=== PATIENT | male | born 1985 | race Caucasian/White ===

== ENCOUNTER 2020-04-03 11:20 | Outpatient (CLI) | payer BC, SELFPAY ==
[2020-04-03 12:21] LABS: SARS-CoV-2 Ag Positive (Negative)
== END 2020-04-03 11:21 | disposition home or self-care (01) ==
LOC: CHSLAB 11:29
PROVIDERS: PCP Internal Medicine; Visit Provider Internal Medicine
DX: U07.1 COVID-19 (principal)
CPT/HCPCS: 87426; C9803

== ENCOUNTER 2020-07-28 18:29 | Emergency (ER) | payer BC, SELFPAY ==
[2020-07-28 19:00] VITALS: BP 146/91; PULSE 84; RESP 18; TEMP 36.2; O2SAT 97
--- NOTE | 2020-07-28 19:10 | PC.NURSE ---
report to irwin delatorre
[2020-07-28] MEDS: DEXAMETHASONE SOD PHOS INJ 4 MG/ML VIAL 10 MG IM (19:50)
[2020-07-28] MEDS: PROCHLORPERAZINE EDISYLATE 10 MG/2 ML VIAL IM (19:55)
[2020-07-28] MEDS: KETOROLAC (*BKC) 60 MG/2 ML VIAL IM (19:58)
[2020-07-28] MEDS: BACLOFEN 10 MG TABLET 20 MG PO (20:01)
[2020-07-28] MEDS: DIVALPROEX SODIUM ER 250 MG TAB.24H 1000 MG PO (20:04)
--- NOTE | 2020-07-28 20:57 | ED.HA ---
HPI - Headache General Chief Complaint: Headache Stated Complaint: migraine Time Seen by Provider: 07/28/20 19:30 Source: patient and family Mode of arrival: ambulatory Limitations: no limitations History of Present Illness HPI Narrative: Patient comes in with migraine that has been present for 8 hours. This is associated with nausea, photophobia, phonophobia, and irritability, inability to rest. Light, noise, glare, all made the headache worse. Headache is located behind right eye. Imitrex taken at home has not helped decrease the headache. Rest helped decrease headache. He rate headace as quite severe, pounding, throbbing. There was no known precipitating cause, or context that precipitated this. Related Data Home Medications Medication Instructions Recorded Confirmed topiramate 25 mg PO DAILY 03/12/19 07/28/20 Allergies Allergy/AdvReac Type Severity Reaction Status Date / Time No Known Allergies Allergy Verified 03/12/19 20:42 Review of Systems Constitutional: Constitutional: Reports no additional constitutional complaints Eyes: Eyes: Reports photophobia ENT: Reports system reviewed and no additional complaints, except as documented Cardiovascular: Cardiovascular: Reports no additional cardiovascular complaints Respiratory: Respiratory: Reports no additional respiratory complaints Gastrointestinal: Gastrointestinal: Reports nausea Genitourinary: Genitourinary: Reports no additional male genitourinary complaints Musculoskeletal: Musculoskeletal: Reports no additional musculoskeletal complaints Integumentary/Breasts: Skin/Breast: Reports system reviewed and no additional complaints, except as docu Neurologic: Reports system reviewed and no additional complaints, except as documented Psychiatric: Psychiatric: Reports no additional psychiatric complaints Endocrine: Endocrine: Reports no additional endocrine complaints Hematologic/Lymphatic: Hematologic/Lymphatic: Reports no additional hematologic/lymphatic complaints Allergic/Immunologic: Allergic/Immunologic: Reports no additional allergic/immunologic complaints [facility] Past Medical History Medical History (Updated 07/29/20 @ 03:34 by Julio Bolaños MD) GERD (gastroesophageal reflux disease) Migraine Migraine headache Surgical History Surgical History (Updated 07/29/20 @ 03:34 by Julio Bolaños MD) No significant past surgical history Family History Family History (Updated 07/29/20 @ 03:35 by Julio Bolaños MD) Mother No significant family history Social History Social History (Updated 03/12/19 @ 21:05 by Dante Porras, ) Social History: non-smoker. Lives with life, , and several dogs. No recent travel or ingestion of uncooked foods. Smoking packs per day: 0 Smoking cigarettes per day: 0.0 Exam Const: General: healthy appearing, no acute distress and alert Nutritional Appearance: well nourished Orientation/consciousness: patient oriented x3 HENMT: Head: normal to inspection Ears: external ears normal and TM's normal bilaterally Face and sinus: normal facial exam Mouth: Yes Normal oral and palatal mucosa present Throat: posterior oropharynx normal Eyes: Conjunctivae: conjunctivae normal Neck: Neck: normal visual inspection and no lymphadenopathy Chest: Chest palpation & inspection: normal inspection of the chest Resp: Effort & Inspection: normal respiratory effort Auscultation: clear to auscultation bilaterally Cardio: Rate: regular rate Rhythm: regular rhythm GI: GI Palp: Yes Soft to palpation (nontender) Auscultation: normal bowel sounds Skin: General skin exam: normal color Neuro: General: patient oriented x3, moves all extremities, no meningeal signs, no focal motor deficits and CN's II-XI intact bilaterally Speech: normal speech Extrem: General: normal to inspection Psych: Appearance: grossly normal Mental Status: mental status grossly normal Thought content: Yes Nor
[2020-07-28 21:02] VITALS: BP 140/78; PULSE 84; RESP 20; TEMP 36.6; O2SAT 97
== END 2020-07-28 21:05 | disposition home or self-care (01) ==
PROVIDERS: Emergency Provider Emergency Medicine; PCP Internal Medicine
DX: G43.909 Migraine, unspecified, not intractable, without status migrainosus (principal)
CPT/HCPCS: 96372; 99283; 99284; A9270; J0780; J1100; J1885

== ENCOUNTER 2020-07-29 08:02 | Outpatient (CLI) | payer BC, SELFPAY ==
[2020-07-29 08:21] LABS: Basophils Absolute Auto 0.02 K/mm3 (0.00-0.10); Basophils Percent Auto 0.2 % (0.0-1.0); Hematocrit 44.1 % (40.0-54.0); Hemoglobin 14.5 g/dL (14.0-18.0); Immature Granulocyte Absolute 0.07 K/mm3 (0.00-0.00); Immature Granulocyte Percent A 0.5 % (0.0-0.0); Lymphocytes Percent Auto 4.5 % (18.0-42.0); Mean Corpuscular HGB Conc 32.9 g/dL (32.0-36.0); Mean Corpuscular Hemoglobin 27.6 pg (27.0-31.0); Mean Platelet Volume 8.8 fl (8.7-11.0); Monocytes Absolute Auto 0.32 K/mm3 (0.10-0.90); Monocytes Percent Auto 2.4 % (2.0-11.0); Neutrophils Absolute Auto 12.3 K/mm3 (1.7-7.2); Neutrophils Percent Auto 92.4 % (50.0-70.0); Platelet Count Result 273 K/mm3 (150-420); Red Blood Count 5.25 M/mm3 (4.70-6.10); Red Cell Distribution Width 12.8 % (11.6-14.4); White Blood Count 13.3 K/mm3 (4.8-10.8)
[2020-07-29 08:22] LABS: Add Urine Microscopic? YES; Appearance Urine Clear (Clear); Bilirubin Urine Negative (Negative); Blood Urine Negative (Negative); Color Urine Yellow (Yellow); Glucose Urine UA Negative (Negative); Ketones Urine Trace (Negative); Leukocyte Esterase Ur Trace (Negative); Nitrate Urine Negative (Negative); Protein Urine 1+ (Negative)
[2020-07-29 08:58] LABS: Bacteria Urine 1+ /hpf; Mucus Urine Moderate /lpf; RBC Urine None seen /hpf (0-2); WBC Urine 0-3 /hpf (0-3)
[2020-07-29 09:24] LABS: Erythrocyte Sedimentation Rate 12 mm/hr (0-15)
[2020-07-29 09:32] LABS: Alanine Aminotransferase 51 U/L (16-63); Alkaline Phosphatase 50 U/L (46-116); Amylase 62 U/L (25-115); Anion Gap 13 mmol/L (8-16); Aspartate Amino Transferase 20 U/L (15-37); Bilirubin,Total 0.4 mg/dL (0.00-1.00); Blood Urea Nitrogen 19 mg/dL (7-18); CRP < 0.5 mg/dL (0.0-0.9); Calcium 9.3 mg/dL (8.5-10.1); Carbon Dioxide 22 mmol/L (21-32); Chloride 103 mmol/L (98-108); Cholesterol 168 mg/dL (0-200); Estimated Glomerular Filt Rate > 60; Free T4 Free Thyroxine 1.05 ng/dL (0.76-1.46); Glucose 126 mg/dL (70-99); HDL Direct 51 mg/dL (40-60); LDL Cholesterol Calculated 109 mg/dL (<130); Lipase 114 U/L (73-393); Osmolality Calculated 290 mOsm/kg (285-295); Potassium 4.3 mmol/L (3.5-5.1); Sodium 138 mmol/L (136-145); Total Protein 7.9 g/dL (6.4-8.2); Triglycerides 42 mg/dL (0-150)
== END 2020-07-29 08:03 | disposition home or self-care (01) ==
LOC: CHSLAB 08:04
PROVIDERS: PCP Internal Medicine; Visit Provider Internal Medicine
DX: Z00.00 Encounter for general adult medical examination without abnormal findings (principal); R10.9 Unspecified abdominal pain
CPT/HCPCS: 36415; 80053; 80061; 81001; 82150; 83690; 84439; 84443; 85025; 85652; 86140; 87086

== ENCOUNTER 2022-03-06 06:54 | Emergency (ER) | payer BC, SELFPAY ==
--- NOTE | ~2022-03-06 | CT_ITS ---
EXAMINATION: CTA chest PE protocol DATE: 03/06/2022 08:32 ASSISTANT GENERAL MANAGER INDICATION: Elevated d-dimer. Chest tightness and shortness of breath. TECHNIQUE: Computed tomographic angiography (CTA) of the chest was performed with 100 mL Omnipaque-35 0 intravenous contrast. The dose-length product was 970.25 mGy-cm. Maximum intensity projection 3D-re constructions of the aorta and other arteries were constructed by the technologist on a separate work station. COMPARISON: None. FINDINGS: Study is technically limited for evaluation of pulmonary embolism due to timing of contrast bolus. No large central pulmonary embolism. No significant pleural or pericardial effusion. Heart si ze is normal. There are gallstones. No endobronchial lesions. No focal airspace disease. No thoracic lymphadenopathy. Aortic arch is unremarkable without aneurysm or dissection. No acute osseous abnorma lity. Mild lumbar spondylosis. No focal lytic or blastic lesions. IMPRESSION: 1. No large central pulmonary embolism. Study technically limited for evaluation of peripheral pulmon sowmya emboli. 2: No acute cardiopulmonary disease. 3: Cholelithiasis. Reviewed, dictated and finalized at location A. STANT GENERAL MANAGER IMPRESSION: 1. No large central pulmonary embolism. Study technically limited for evaluatio n of peripheral pulmonary emboli. 2: No acute cardiopulmonary disease. 3: Cholelithiasis.
[2022-03-06 07:00] VITALS: BP 139/93; PULSE 109; RESP 16; TEMP 36.5; O2SAT 97
--- NOTE | 2022-03-06 07:00 | ECG_ITS ---
Measurements Intervals [place] Rate: 112 P: 61 AL: 155 QRS: 36 QRSD: 106 T: 65 QT: 314 QTc: 429 Interpretive Statements SINUS TACHYCARDIA BORDERLINE ECG NO PREVIOUS ECG AVAILABLE FOR COMPARISON Electronically Signed On 03-06-2022 15:32:30 FINE SANDER by Jovon Underwood M.D.
--- NOTE | 2022-03-06 07:00 | ED.CHESTPAIN ---
HPI - Chest Pain General Chief Complaint: Chest Pain Stated Complaint: HIGH BLOOD PRESSURE CHEST TIGHTNESS Time Seen by Provider: 03/06/22 07:00 Source: patient and RN notes reviewed Mode of arrival: ambulatory Limitations: no limitations History of Present Illness HPI narrative: Patient states began having some chest pressure about 515 this morning. He began having a cough Friday.. Says when he coughs he gets short of breath. He has also been having some body aches the last 2 days. He denies any diaphoresis. The chest pressure substernal. Nothing makes it better or worse. Other than obesity he has no other risk factors. complaint: chest heaviness Onset (ago): hour(s) (2) Timing of current episode: constant Prior episodes: No Onset: during rest Pain location: substernal Pain radiation: none Pain scale (0-10): 5 Quality: heaviness Relieving factors: nothing Exacerbating factors: nothing Associated symptoms: nausea Treatment prior to arrival: none Related Data Home Medications Medication Instructions Recorded Confirmed topiramate 25 mg tablet 25 mg PO DAILY 03/12/19 03/06/22 sumatriptan succinate 6 mg/0.5 mL 6 mg subcut DAILY PRN Pain 03/06/22 03/06/22 subcutaneous pen injector Allergies Allergy/AdvReac Type Severity Reaction Status Date / Time No Known Allergies Allergy Verified 03/06/22 07:18 Review of Systems Review of Systems: All systems reviewed & are unremarkable except as noted in HPI and below Constitutional: Constitutional: Denies excessive sweating and Denies fever(s) Gastrointestinal: Gastrointestinal: Denies vomiting Musculoskeletal: Musculoskeletal: Reports myalgias PMFSH Past Medical History Medical History GERD (gastroesophageal reflux disease) Migraine Migraine headache Surgical History Surgical History No significant past surgical history Family History Family History (Updated 07/29/20 @ 03:35 by Julio Bolaños MD) Mother No significant family history Social History Social History Social History: non-smoker. Lives with life, , and several dogs. No recent travel or ingestion of uncooked foods. Smoking packs per day: 0 Smoking cigarettes per day: 0.0 Exam Const: General: healthy appearing, no acute distress and alert Nutritional Appearance: well nourished and obese Orientation/consciousness: patient oriented x3 Limitations: no limitations HENMT: Head: normal to inspection Ears: external ears normal Eyes: Conjunctivae: conjunctivae normal Pupils: Equal, round and reactive pupils present EOM: EOMs intact bilaterally Neck: Neck: normal visual inspection Resp: Effort & Inspection: normal respiratory effort Auscultation: clear to auscultation bilaterally Cardio: Rate: regular rate Rhythm: regular rhythm GI: GI Palp: Yes Soft to palpation and No Tenderness to palpation present (GI) Auscultation: normal bowel sounds Back/Spine/Pelvis: Cervical Spine: cervical ROM normal Thoracic/Lumbar Spine: thoraco-lumbar ROM normal Skin: General skin exam: normal color Rashes: no rashes Neuro: General: patient oriented x3, moves all extremities, no focal motor deficits and CN's II-XI intact bilaterally Speech: normal speech Gait exam (Neuro): Normal gait present Extrem: General: normal to inspection and no clubbing, cyanosis or edema Psych: Mental Status: mental status grossly normal Affect: normal affect Attitude: cooperative Course Course Emergency Course: differential diagnosis: Angina, acute MN, pneumonia, COVID, influenza, pulmonary embolism. I explained to the patient and family that it is too late for Tamiflu since patient greater than 48 hours since his symptoms start. Recommended he see his primary care physician for evaluation and treatment of his elevated blood pressure. B
[2022-03-06 07:21] LABS: Basophils Absolute Auto 0.04 K/mm3 (0.00-0.10); Basophils Percent Auto 0.6 % (0.0-1.0); Eosinophils Absolute Auto 0.12 K/mm3 (0.02-0.50); Eosinophils Percent Auto 1.8 % (1.0-6.0); Hematocrit 42.1 % (40.0-54.0); Hemoglobin 13.7 g/dL (14.0-18.0); Immature Granulocyte Absolute 0.02 K/mm3 (0.00-0.00); Immature Granulocyte Percent A 0.3 % (0.0-0.0); Lymphocytes Absolute Auto 0.76 K/mm3 (1.10-4.50); Lymphocytes Percent Auto 11.2 % (18.0-42.0); Mean Corpuscular HGB Conc 32.5 g/dL (32.0-36.0); Mean Corpuscular Hemoglobin 27.7 pg (27.0-31.0); Mean Corpuscular Volume 85.2 fL (78.0-102.0); Mean Platelet Volume 8.7 fl (8.7-11.0); Monocytes Absolute Auto 0.85 K/mm3 (0.10-0.90); Monocytes Percent Auto 12.5 % (2.0-11.0); Neutrophils Percent Auto 73.6 % (50.0-70.0); Platelet Count Result 220 K/mm3 (150-420); Red Blood Count 4.94 M/mm3 (4.70-6.10); Red Cell Distribution Width 13.2 % (11.6-14.4); White Blood Count 6.8 K/mm3 (4.8-10.8)
[2022-03-06 07:40] LABS: Alanine Aminotransferase 54 U/L (16-63); Albumin Level 3.8 g/dL (3.4-5.0); Alkaline Phosphatase 51 U/L (46-116); Anion Gap 12 mmol/L (8-16); Aspartate Amino Transferase 20 U/L (15-37); Bilirubin,Total 0.4 mg/dL (0.00-1.00); Blood Urea Nitrogen 15 mg/dL (7-18); Calcium 8.5 mg/dL (8.5-10.1); Carbon Dioxide 23 mmol/L (21-32); Chloride 107 mmol/L (98-108); Estimated CRCL calculation 110 ml/min; Estimated Glomerular Filt Rate > 60; Glucose 103 mg/dL (70-99); Osmolality Calculated 294 mOsm/kg (285-295); Potassium 3.7 mmol/L (3.5-5.1); Sodium 142 mmol/L (136-145); Total Protein 7.4 g/dL (6.4-8.2); Troponin I 5.7 ng/L (0.00-60.4)
[2022-03-06 07:41] LABS: CRP 1.3 mg/dL (0.0-0.9); Magnesium 1.9 mg/dL (1.8-2.4)
[2022-03-06 07:42] LABS: Prothrombin Time 10.8 Seconds (9.50-12.10)
[2022-03-06 07:44] LABS: D Dimer 24.19 mg/L (0.19-0.50)
[2022-03-06 07:58] LABS: Influenza A QL RT-PCR Positive (Negative); Influenza B QL RT-PCR Negative (Negative); SARS-CoV-2 RNA PCR Negative (Negative)
[2022-03-06 08:55] VITALS: BP 130/88; PULSE 90; RESP 16; TEMP 37; O2SAT 97
[2022-03-06] MEDS: KETOROLAC 30 MG/ML VIAL (*BKC) IV PUSH (08:55)
== END 2022-03-06 08:55 | disposition home or self-care (01) ==
PROVIDERS: Emergency Provider Emergency Medicine; PCP Internal Medicine
DX: J11.1 Influenza due to unidentified influenza virus with other respiratory manifestations (principal); Z20.822 Contact with and (suspected) exposure to COVID-19
CPT/HCPCS: 36415; 71275; 80053; 83735; 84484; 85025; 85380; 85610; 86140; 87502; 93005; 96374; 99284; J1885; Q9967; U0003; U0005

== ENCOUNTER 2022-03-08 10:56 | Outpatient (CLI) | payer BC, SELFPAY ==
--- NOTE | ~2022-03-08 | CT_ITS ---
EXAMINATION: CTA chest PE protocol DATE: 03/08/2022 13:50 CONTINUOUS LINTER DRIER OPERATOR INDICATION: Dyspnea. Positive d-dimer. TECHNIQUE: Computed tomographic angiography (CTA) of the chest was performed with 100 mL Omnipaque-35 0 intravenous contrast. The dose-length product was 915.11 mGy-cm. Maximum intensity projection 3D-re constructions of the aorta and other arteries were constructed by the technologist on a separate work station. Automated exposure control and iterative reconstruction technique were employed. COMPARISON: CT dated 03/06/2022. FINDINGS: The study is technically adequate without evidence for pulmonary embolism. No significant p leural or pericardial effusion. Heart size normal. No thoracic lymphadenopathy. No endobronchial lesi ons. There is right lower lobe atelectasis. No pneumothorax. Mild thoracic spondylosis. No focal lyti c or blastic lesions are identified. There are gallstones. Otherwise, the upper aspect of the abdomen is unremarkable. IMPRESSION: 1. No evidence for pulmonary embolism. No acute cardiopulmonary disease. 2: Cholelithiasis. Reviewed, dictated and finalized at location A. INUOUS LINTER DRIER OPERATOR
--- NOTE | ~2022-03-08 | XR_ITS ---
XR chest 2V DATE: 03/08/2022 11:22 INDICATION: Shortness of breath, cough, congestion. Flu. TECHNIQUE: PA and lateral views COMPARISON: 03/06/2022 CT pulmonary scan FINDINGS: Normal heart size. No hilar or mediastinal enlargement. No pulmonary infiltrate or consolid ation, pleural effusion or pulmonary vascular congestion or pneumothorax. IMPRESSION: No active cardiopulmonary disease Reviewed, dictated and finalized at location B. GATION ATTORNEY ASSOCIATE
--- NOTE | ~2022-03-08 | US_ITS ---
EXAMINATION:US venous doppler LE BI INDICATION:Dyspnea. Elevated d-dimer. TECHNIQUE: Multiple grayscale, color flow and Doppler images of the bilateral lower extremity deep ve nous systems were obtained and reviewed. COMPARISON:No prior studies for comparison. FINDINGS: The common femoral, superficial femoral and popliteal veins demonstrate normal respiratory variation, augmentation and compressibility. Color flow is also seen within the posterior tibial, pe roneal, greater saphenous and profunda veins. IMPRESSION: 1: No lower extremity deep venous thrombosis. Reviewed, dictated and finalized at location A. OR SQL DBA
[2022-03-08 11:17] LABS: Basophils Absolute Auto 0.03 K/mm3 (0.00-0.10); Basophils Percent Auto 0.3 % (0.0-1.0); Eosinophils Absolute Auto 0.07 K/mm3 (0.02-0.50); Eosinophils Percent Auto 0.8 % (1.0-6.0); Hematocrit 44.1 % (40.0-54.0); Hemoglobin 14.1 g/dL (14.0-18.0); Immature Granulocyte Absolute 0.06 K/mm3 (0.00-0.00); Immature Granulocyte Percent A 0.7 % (0.0-0.0); Lymphocytes Absolute Auto 1.16 K/mm3 (1.10-4.50); Lymphocytes Percent Auto 13.1 % (18.0-42.0); Mean Corpuscular Hemoglobin 27.3 pg (27.0-31.0); Mean Corpuscular Volume 85.5 fL (78.0-102.0); Mean Platelet Volume 8.5 fl (8.7-11.0); Monocytes Absolute Auto 1.01 K/mm3 (0.10-0.90); Monocytes Percent Auto 11.4 % (2.0-11.0); Neutrophils Absolute Auto 6.5 K/mm3 (1.7-7.2); Neutrophils Percent Auto 73.7 % (50.0-70.0); Platelet Count Result 222 K/mm3 (150-420); Red Blood Count 5.16 M/mm3 (4.70-6.10); White Blood Count 8.9 K/mm3 (4.8-10.8)
[2022-03-08 11:30] LABS: Alanine Aminotransferase 43 U/L (16-63); Albumin Level 3.8 g/dL (3.4-5.0); Alkaline Phosphatase 47 U/L (46-116); Anion Gap 8 mmol/L (8-16); Aspartate Amino Transferase 19 U/L (15-37); Bilirubin,Total 0.4 mg/dL (0.00-1.00); Blood Urea Nitrogen 17 mg/dL (7-18); CRP 4.6 mg/dL (0.0-0.9); Calcium 8.6 mg/dL (8.5-10.1); Carbon Dioxide 26 mmol/L (21-32); Chloride 105 mmol/L (98-108); Estimated Glomerular Filt Rate > 60; Glucose 85 mg/dL (70-99); Osmolality Calculated 288 mOsm/kg (285-295); Potassium 3.8 mmol/L (3.5-5.1); Sodium 139 mmol/L (136-145); Total Protein 7.9 g/dL (6.4-8.2)
[2022-03-08 11:50] LABS: D Dimer 24.47 mg/L (0.19-0.50)
[2022-03-08 12:33] LABS: Erythrocyte Sedimentation Rate 22 mm/hr (0-15)
== END 2022-03-08 10:57 | disposition home or self-care (01) ==
PROVIDERS: PCP Internal Medicine; Visit Provider Internal Medicine
DX: R06.00 Dyspnea, unspecified (principal); R79.1 Abnormal coagulation profile; R07.9 Chest pain, unspecified
CPT/HCPCS: 36415; 71046; 71275; 80053; 85025; 85380; 85652; 86140; 93970; Q9967

== ENCOUNTER 2022-05-26 18:42 | Emergency (ER) | payer BC, SELFPAY ==
[2022-05-26] VITALS (13 sets, daily range): BP systolic 115–134; BP diastolic 66–92; PULSE 85–127; RESP 10–16; TEMP 36.9; O2SAT 94–100
--- NOTE | ~2022-05-26 | CT_ITS ---
EXAMINATION: CT abdomen pelvis w con DATE: 05/26/2022 20:26 INDICATION: epigastric abdominal pain, N/V/D TECHNIQUE: Computed tomography (CT) of the abdomen and pelvis was performed with 100 mL Omnipaque-350 intravenous contrast. Automated exposure control and iterative reconstruction technique were employe d. The dose-length product was 1544.83 mGy-cm. COMPARISON: [facility] 03/08/2022, CT abdomen 06/20/2007. FINDINGS: Lower thorax: Bilateral gynecomastia. Minimal right basilar scar/atelectasis. Liver: Normal. Biliary/Gallbladder: Cholelithiasis. No bile duct dilation. Pancreas: No mass or duct dilation. Spleen: Normal. Adrenals:No mass. Kidneys: Nonobstructing left midpole 3 mm calculus. No mass, obstructing stone, or hydronephrosis. GI tract: Mild distal esophageal and antral wall edema. Mildly distended, fluid-filled stomach. No sm all or large bowel dilation. Normal appendix. Mild diverticulosis without diverticulitis. Mesentery/Peritoneum: No ascites, mass, or free air. Retroperitoneum: No mass. Pelvis: Pelvic organs are within normal limits. Soft Tissues: Small, uncomplicated fat-containing umbilical and bilateral inguinal hernias. Bones: No acute osseous finding. IMPRESSION: Mildly distended, fluid-filled stomach, correlate for clinical findings of gastric outlet obstruction /gastroparesis. Mild antral gastritis. Cholelithiasis, without CT evidence of cholecystitis. Reviewed, dictated and finalized at location K. ER TENDER IMPRESSION: Mildly distended, fluid-filled stomach, correlate for clinical findings of josefa danny outlet obstruction/gastroparesis. Mild antral gastritis. Cholelithiasis, wi thout CT evidence of cholecystitis.
[2022-05-26 19:24] LABS: Appearance Urine Clear (Clear); Bilirubin Urine Negative (Negative); Blood Urine Negative (Negative); Color Urine Yellow (Yellow); Glucose Urine UA Negative (Negative); Ketones Urine Negative (Negative); Leukocyte Esterase Ur Negative LEU/UL (Negative); Nitrate Urine Negative (Negative); Protein Urine 1+ mg/dL (Negative); Specific Grav Ur >= 1.030 (1.001-1.035)
[2022-05-26 19:28] LABS: Mucus Urine Rare /lpf
[2022-05-26 19:29] LABS: Add Urine Microscopic? YES
--- NOTE | 2022-05-26 19:54 | ECG_ITS ---
Measurements Intervals [place] Rate: 107 P: 23 LA: 136 QRS: 13 QRSD: 102 T: 31 QT: 308 QTc: 412 Interpretive Statements SINUS TACHYCARDIA POOR R-WAVE PROGRESSION BORDERLINE ECG COMPARED TO ECG 03/06/2022 07:02:53 NO SIGNIFICANT CHANGES Electronically Signed On 05-27-2022 14:08:01 GUIDE TOUR by Jovon Underwood M.D.
--- NOTE | 2022-05-26 19:55 | ED.ABDPAIN ---
HPI - Abdominal Pain General Chief Complaint: Abdominal Pain Stated Complaint: abd pain Time Seen by Provider: 05/26/22 19:47 Source: patient, RN notes reviewed and old records reviewed Mode of arrival: ambulatory Limitations: no limitations History of Present Illness HPI narrative: This is a 36 year old male with history of GERD who presents for evaluation of epigastric abdominal pain with nausea and vomiting. Patient states he had similar episode in February and he was told he had incidental gallstones. Patient reports he developed epigastric pain this morning at 5 am. He has constant pain that radiates to back pain . He also reports burning back to his chest. He has been having nausea, vomiting and diarrhea. He has taken ibuprofen for your pain . He rates pain as 6/10. Related Data Home Medications Medication Instructions Recorded Confirmed topiramate 25 mg tablet 25 mg PO DAILY 03/12/19 03/06/22 sumatriptan succinate 6 mg/0.5 mL 6 mg subcut DAILY PRN Pain 03/06/22 03/06/22 subcutaneous pen injector Allergies Allergy/AdvReac Type Severity Reaction Status Date / Time No Known Allergies Allergy Verified 05/26/22 19:02 Review of Systems Constitutional: Constitutional: Denies weakness Cardiovascular: Cardiovascular: Reports chest pain, Denies syncope, Denies rapid heart rate, Denies irregular heart rhythm, Denies leg edema and Denies dyspnea Respiratory: Respiratory: Denies chest congestion, Denies hemoptysis, Denies excessive phlegm production and Denies dyspnea Gastrointestinal: Gastrointestinal: Reports abdominal pain, Denies hematochezia, Reports diarrhea, Reports nausea and Reports vomiting Genitourinary: Genitourinary: Denies hematuria, Denies dysuria, Denies penile discharge and Denies testicular pain Musculoskeletal: Musculoskeletal: Reports back pain, Denies joint swelling, Denies loss of height and Denies muscle weakness Neurologic: Denies syncope, Denies focal weakness and Denies weakness PMFSH Past Medical History Medical History GERD (gastroesophageal reflux disease) Migraine Migraine headache Surgical History Surgical History No significant past surgical history Family History Family History (Updated 07/29/20 @ 03:35 by Julio Bolaños MD) Mother No significant family history Social History Social History Social History: non-smoker. Lives with life, infant, and several dogs. No recent travel or ingestion of uncooked foods. Smoking packs per day: 0 Smoking cigarettes per day: 0.0 Exam Const: General: no acute distress and alert Orientation/consciousness: patient oriented x3 Limitations: no limitations HENMT: Head: normal to inspection Eyes: EOM: EOMs intact bilaterally Resp: Effort & Inspection: normal respiratory effort Auscultation: clear to auscultation bilaterally Cardio: Rate: regular rate Rhythm: regular rhythm Heart sounds: no murmurs GI: GI Palp: Yes Soft to palpation, Yes Tenderness to palpation present (GI) (epigastric), No Guarding due to palpation present (GI) and No Rigid due to palpation Auscultation: normal bowel sounds Skin: General skin exam: normal color Rashes: no rashes Wounds: no wounds Neuro: General: patient oriented x3, moves all extremities and CN's II-XI intact bilaterally Cranial nerves: Yes Nystagmus not present Speech: normal speech Gait exam (Neuro): Normal gait present Extrem: General: normal to inspection Psych: Mental Status: mental status grossly normal Affect: normal affect Attitude: cooperative Course Reevaluation(s) Reevaluation #1: PAtient states he feels much better. He denies any pain or nausea /vomiting. He was able to tolerate PO. I discussed with patient no sign of cholecystitis. I recommended follow up with GI for evaluation of his symptoms as
[2022-05-26 19:56] LABS: Basophils Percent Auto 0.3 % (0.2-1.2); Eosinophils Percent Auto 0.4 % (0-4.4); Hematocrit 47.9 % (42.0-52.0); Hemoglobin 15.7 g/dL (14.0-18.0); Immature Granulocyte Absolute 0.03 K/mm3 (0.00-0.031); Immature Granulocyte Percent A 0.3 % (0-0.5); Lymphocytes Absolute Auto 0.59 K/mm3 (0.9-3.2); Lymphocytes Percent Auto 6.1 % (18.3-44.2); Mean Corpuscular HGB Conc 32.8 g/dl (32-36); Mean Corpuscular Hemoglobin 27.9 pg (26-34); Mean Corpuscular Volume 85.2 fl (80-100); Mean Platelet Volume 8.8 fl (7.4-10.4); Monocytes Absolute Auto 0.6 K/mm3 (0.1-0.6); Monocytes Percent Auto 5.7 % (2.6-8.5); Neutrophils Absolute Auto 8.4 K/mm3 (1.3-6.7); Neutrophils Percent Auto 87.2 % (45.5-73.1); Platelet Count Result 230 k/mm3 (150-375); Red Blood Count 5.62 M/mm3 (4.6-6.20); White Blood Count 9.7 K/mm3 (4.5-10.0)
[2022-05-26] MEDS: PANTOPRAZOLE SODIUM IV 40 MG VIAL IV PUSH (20:04)
[2022-05-26] MEDS: ONDANSETRON INJ 4 MG/2 ML VIAL IV PUSH (20:05)
[2022-05-26] MEDS: SODIUM CHLORIDE 0.9% IV 1,000 ML 999 ML IV CONT ×2 (20:05)
[2022-05-26] MEDS: HYDROmorphone HCL INJ (*CRX) 1 MG/ML SYR 0.5 MG IV PUSH (20:05)
[2022-05-26 20:06] LABS: Alanine Aminotransferase 34 U/L (6-50); Albumin Level 4.8 g/dL (3.5-5.1); Alkaline Phosphatase 46 U/L (38-126); Anion Gap 9 mmol/L (8-16); Aspartate Amino Transferase 27 U/L (17-59); Bilirubin,Total 0.7 mg/dL (0.2-1.3); Blood Urea Nitrogen 17 mg/dL (9-20); Calcium 8.9 mg/dL (8.4-10.2); Carbon Dioxide 23 mmol/L (22-30); Chloride 105 mmol/L (98-107); Estimated CRCL calculation 132 ml/min; Estimated Glomerular Filt Rate > 60; Glucose 110 mg/dL (65-110); Lipase 88 U/L (23-300); Potassium 3.7 mmol/L (3.4-5.0); Sodium 137 mmol/L (137-145)
[2022-05-26 20:44] LABS: Troponin I < 0.012 ng/mL (0.000-0.034)
[2022-05-26 20:58] LABS: Lactic Acid Reflex 0.8 mmol/L (0.7-2.0)
[2022-05-26] MEDS: METOCLOPRAMIDE HCL INJ 10 MG/2 ML VIAL IV PUSH (21:01)
--- NOTE | 2022-05-26 21:56 | PC.NURSE ---
Patient tolerating water and crackers well. Patient reports he is feeling better after medications.
== END 2022-05-26 22:52 | disposition home or self-care (01) ==
PROVIDERS: Emergency Medicine; Emergency Provider General Practice; PCP Internal Medicine
DX: K21.9 Gastro-esophageal reflux disease without esophagitis (principal); R10.13 Epigastric pain; R00.0 Tachycardia, unspecified; K80.20 Calculus of gallbladder without cholecystitis without obstruction; K29.70 Gastritis, unspecified, without bleeding
CPT/HCPCS: 36415; 74177; 80053; 81001; 83605; 83690; 84484; 85025; 93005; 96361; 96374; 96375; 99284; C9113; J1170; J2405; J2765; J7030; Q9967

== ENCOUNTER 2022-07-29 01:27 | Day surgery (SDC) | payer BC, SELFPAY ==
[2022-07-17 12:37] VITALS: BMI 35.9
[2022-07-29 07:45] VITALS: BP 119/74; PULSE 87; RESP 18; TEMP 36.3; O2SAT 98
[2022-07-29] MEDS: LACTATED RINGERS 1,000 ML 150 ML IV CONT (07:55)
--- NOTE | 2022-07-29 08:12 | PM.HPGS ---
History of Present Illness History of Present Illness Consent: Risks, benefits, and alternatives have been discussed and questions answered. Patient agrees to proceed with procedure. Chief complaint: epigastric pain,abnormal radiology finding, N&V Narrative: Quentin Talavera is a 36 year old male Presents for EGD. Patient has history of epigastric discomfort associated with some nausea. Went to the emergency room a CT scan revealed mild distention of the stomach. Patient has been maintained on Reglan as well as pantoprazole 40mg p.o. daily with improved symptoms. He currently is pain free with no nausea or vomiting. An EGD is requested to evaluate the abnormality seen on imaging studies. Gallstones were also noted but not felt to be symptomatic at the time of procedure. Patient has never had a HIDA scan done. Review of Systems Review of Systems: Review of systems noncontributory. [facility] Past Medical History Medical History (Updated 07/29/22 @ 08:14 by Julio Knight MD) Cholelithiases Epigastric pain Gall stones GERD (gastroesophageal reflux disease) Migraine Migraine headache Nausea and vomiting Surgical History Surgical History No significant past surgical history Family History Family History (Updated 07/29/20 @ 03:35 by Julio Bolaños MD) Mother No significant family history Social History Social History Social History: non-smoker. Lives with life, , and several dogs. No recent travel or ingestion of uncooked foods. Smoking packs per day: 0 Smoking cigarettes per day: 0.0 Smoking status: Never smoker Alcohol intake: never Substance use type: does not use Living arrangements: with family Spiritual care concerns: No Meds Home Medications and Allergies Home Medications Medication Instructions Recorded Confirmed Type sumatriptan succinate 6 mg/0.5 mL 6 mg subcut DAILY PRN Pain 03/06/22 07/17/22 History subcutaneous pen injector metoclopramide HCl 5 mg tablet 5 mg PO Q6H PRN nausea and 05/26/22 07/17/22 Rx (Reglan) vomiting #14 tabs pantoprazole 40 mg tablet,delayed 40 mg PO QAM 4 weeks #28 tabs 05/26/22 07/17/22 Rx release (Protonix) topiramate 25 mg tablet 100 mg PO DAILY 06/05/22 07/17/22 History Allergies Allergy/AdvReac Type Severity Reaction Status Date / Time No Known Allergies Allergy Verified 07/29/22 07:43 Vital Signs Vital Signs - 24 hr 07/29/22 07:45 Temperature 97.3 F L Pulse Rate 87 Respiratory Rate 18 Blood Pressure 119/74 Pulse Oximetry 98 Oxygen Delivery Room Air Exam Narrative: physical exam reveals patient be alert. Vital signs stable. HEENT exam is unremarkable. Patient is anicteric. Lungs are clear to auscultation and percussion. Heart is without murmur or extra sounds. Abdomen is obese. Bowel sounds are present soft nontender with no organomegaly. Assessment and Plan Assessment and plan (1) Epigastric pain: Code(s): R10.13 - Epigastric pain Status: Acute Assessment and Plan: Epigastric pain is improved while taking pantoprazole suggesting dyspepsia as the etiology for his symptoms. Ulcer disease cannot be excluded. EGD is requested to evaluate thoroughly but also because of abnormal imaging. Plan to discontinue Reglan. Further recommendations regarding pantoprazole will be deferred until after endoscopy. (2) Cholelithiases: Code(s): K80.20 - Calculus of gallbladder without cholecystitis without obstruction Status: Acute Assessment and Plan: Gallstones noted incidentally on imaging. No evidence of cholecystitis. If abdominal pain persists HIDA scan may be prudent. Observation of gallstones recommended for now. Patient's symptoms have improved on PPI therapy suggesting this was dyspepsia rather than gallstones. (3) Abnormal CT scan:
--- NOTE | 2022-07-29 08:46 | P.PNAN_ITS ---
Anes - Initial Pre Proc Eval Procedure: Operation Date: 07/29/22 09:00 Proposed Procedures p Esophagogastroduodenoscopy - Julio Knight MD Date/Time: 07/29/22 08:46 Surgeon: Julio Knight MD Pre Op Diagnosis: epigastric pain,abnormal radiology finding, N&V Patient Data Age: 36 Gender: M Height: 1.83 m Weight: 121.8 kg Last Vital Signs Temp 97.3 F L 07/29/22 07:45 Pulse 87 07/29/22 07:45 Resp 18 07/29/22 07:45 BP 119/74 07/29/22 07:45 Pulse Ox 98 07/29/22 07:45 O2 Del Method Room Air 07/29/22 07:45 Allergies Allergy/AdvReac Type Severity Reaction Status Date / Time No Known Allergies Allergy Verified 07/29/22 07:43 Home Medications Medication Instructions Recorded Confirmed Type sumatriptan succinate 6 mg/0.5 mL 6 mg subcut DAILY PRN Pain 03/06/22 07/17/22 History subcutaneous pen injector pantoprazole 40 mg tablet,delayed 40 mg PO QAM 4 weeks #28 tabs 05/26/22 07/17/22 Rx release (Protonix) topiramate 25 mg tablet 100 mg PO DAILY 06/05/22 07/17/22 History Patient hx anesthesia problems: none Family hx anesthesia problems: none Results Review: All pre-operative results and documents have been reviewed as part of the pre- operative evaluation. [facility] Past Medical History Medical History (Updated 07/29/22 @ 08:14 by Julio Knight MD) Cholelithiases Epigastric pain Gall stones GERD (gastroesophageal reflux disease) Migraine Migraine headache Nausea and vomiting Surgical History Surgical History No significant past surgical history Family History Family History (Updated 07/29/20 @ 03:35 by Julio Bolaños MD) Mother No significant family history Social History Social History Social History: non-smoker. Lives with life, infant, and several dogs. No recent travel or ingestion of uncooked foods. Smoking packs per day: 0 Smoking cigarettes per day: 0.0 Smoking status: Never smoker Alcohol intake: never Substance use type: does not use Living arrangements: with family Spiritual care concerns: No Anes - Eval Final PreProcedure Day of Procedure 07/29/22 08:46 Patient weight: obese Heart: regular rate and rhythm Lungs: clear to auscultation Airway: Mallampati scale class II Neurological: alert and oriented Last oral intake: >/= 8 hours ASA classification: II Emergent: no Anesthetic plan: proceed Anesthesia type and monitoring: general GIVS and standard monitoring Results Review: All pre-operative results and documents have been reviewed as part of the pre- operative evaluation. Informed Consent: The patient's anesthetic plan and its attendant risks and benefits were discussed with the patient/family/POA. Questions were solicited and answers provided to the satisfaction of the patient/family/POA.
[2022-07-29] MEDS: BENZOCAINE (*SP) 60 ML SPRAY CAN (HURRICAINE) 1 SPRAY MUCOUS MEM (08:52)
[2022-07-29 09:03] VITALS: BP 105/73; PULSE 80; RESP 21; O2SAT 96
[2022-07-29 09:13] VITALS: BP 111/75; PULSE 73; RESP 16; O2SAT 99
[2022-07-29 09:23] VITALS: BP 125/84; PULSE 78; RESP 20; O2SAT 98
== END 2022-07-29 09:35 | disposition home or self-care (01) ==
PROVIDERS: PCP Internal Medicine; Visit Provider Internal Medicine Gastroenterology
PROC: 0DJ08ZZ Inspection of Upper Intestinal Tract, Via Natural or Artificial Opening Endoscopic (ICD-10-PCS; CPT 43235; principal; 2022-07-29 09:00)
DX: R10.13 Epigastric pain (principal); R11.2 Nausea with vomiting, unspecified; K21.9 Gastro-esophageal reflux disease without esophagitis; K80.20 Calculus of gallbladder without cholecystitis without obstruction; E66.9 Obesity, unspecified; Z68.36 Body mass index [BMI] 36.0-36.9, adult
CPT/HCPCS: 43239; 87081; J2704; J7120